=== PATIENT | male | born 1980 | race Caucasian/White ===

== ENCOUNTER 2018-10-18 08:39 | Emergency (ER) | payer BC ==
--- NOTE | 2018-10-18 09:09 | EDM.PDOC ---
ED HPI GENERAL MEDICAL PROBLEM - General Chief Complaint: Lower Extremity Injury/Pain Stated Complaint: RT LEG TENDER AND SWOLLEN Time Seen by Provider: 10/18/18 08:57 Source of Information: Reports: Patient, RN Notes Reviewed History Limitations: Reports: No Limitations - History of Present Illness INITIAL COMMENTS - FREE TEXT/NARRATIVE: The patient states that he developed posterior right calf pain on or about this past 10/14/2018. He does not recall any injury to the leg, and while it feels like a cramp, he does not recall actually having a cramp in the leg. He has not noticed any swelling or other abnormal appearance to his right leg. No tingling or numbness to the right lower extremity. He denies undertaking any new exercise. He [address] to and from work, daily, but he has not taken any prolonged trips or flights. He does not have a known history of hypercoagulation, and there is no history of a DVT or PE. No recent chest pain, palpitations, or dyspnea. No prior similar symptoms. The patient states that he has tried Icy Hot, a heating pad, and a TENS unit, without relief. The patient was seen at the walk-in clinic today, but sent here for evaluation. The patient's PCP is Dr. Blake. Right Posterior Leg Pain Score (Numeric/FACES): 3 - Related Data Allergies Allergy/AdvReac Type Severity Reaction Status Date / Time ibuprofen Allergy Nausea Verified 10/18/18 08:51 Home Meds: Home Meds . 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 ED EXAM, GENERAL - Physical Exam Exam: See Below Exam Limited By: No Limitations General Appearance: Alert, WD/WN, No Apparent Distress Extremities: Normal Inspection, Normal Range of Motion, No Pedal Edema, Normal Capillary Refill, Other (No visible abnormality to the right leg, when compared to the left, such as swelling, erythema, ecchymosis, or abrasion. Mid-calf circumference of the right leg is 39.0 cm, while the mid-calf circumference of the left leg is 38.5 cm. Mild tenderness to palpation of the posterior right calf. Neurovascular status of the right lower extremity is intact.) Course - Vital Signs Last Recorded V/S: Last Vital Signs Temp 36.5 C 10/18/18 08:48 Pulse 81 10/18/18 08:48 Resp 16 10/18/18 08:48 BP 140/98 H 10/18/18 08:48 Pulse Ox 95 10/18/18 08:48 - Orders/Labs/Meds Labs: Laboratory Tests 10/18/18 10/18/18 10/18/18 Range/Units 09:18 09:18 09:18 WBC 7.09 (4.23-9.07) K/mm3 RBC 5.34 (4.63-6.08) M/mm3 Hgb 15.2 (13.7-17.5) gm/L Hct 46.2 (40.1-51.0) % MCV 86.5 (79.0-92.2) fl MCH 28.5 (25.7-32.2) pg MCHC 32.9 (32.2-35.5) g/dl RDW Std Deviation 43.3 (35.1-43.9) fL Plt Count 226 (163-337) K/mm3 MPV 9.4 (9.4-12.3) fl Neutrophils % (Manual) 43 (40-60) % Band Neutrophils % 0 (0-10) % Lymphocytes % (Manual) 44 H (20-40) % Atypical Lymphs % 0 % Monocytes % (Manual) 11 H (2-10) % Eosinophils % (Manual) 1 (0.8-7.0) % Basophils % (Manual) 1 (0.2-1.2) Platelet Estimate Adequate Plt Morphology Comment Normal RBC Morph Comment Normal PT 10.3 (9.5-12.1) SECONDS INR 0.94 APTT 30 (24-31) SECONDS Sodium 139 (136-145) mEq/L Potassium 4.2 (3.5-5.1) mEq/L Chloride 104 (98-107) mEq/L Carbon Dioxide 26 (21-32) mEq/L Anion Gap 13.2 (5-15) BUN 17 (7-18) mg/dL Creatinine 1.0 (0.7-1.3) mg/dL Est Cr Clr Drug Dosing 120.88 mL/min Estimated GFR (MDRD) > 60 (>60) mL/min BUN/Creatinine Ratio 17.0 (14-18) Glucose 132 H (74-106) mg/dL Calcium 9.0 (8.5-10.1) mg/dL Total Bilirubin 0.4 (0.2-1.0) mg/dL AST 15 (15-37) U/L ALT 29 (16-63) U/L Alkaline Phosphatase 59 (46-116) U/L Total Protein 7.4 (6.4-8.2) g/dl Albumin 3.3 L (3.4-5.0) g/dl Globulin 4.1 gm/dL Albumin/Globulin Ratio 0.8 L (1-2) Meds: Medications Discontinued Medications Generic Name Dose Route Start Last Admin Trade Name Freq PRN Reason Stop Dose Admin Rivaroxaban 15 mg 10/18/18 11:44 Xarelto PO 10/18/18 11:45 ONETIME STA - Re-Assessments/Exams Free Text/Narrative Re-Assessment/Exam: 10/18/18 09:09 I have ordered a Doppler of the right lower extremity, to evaluate for a DVT, and, in the meantime, we will check a CBC, CMP, and coags, in case the patient does require anticoagulation. 10/18/18 11:03 The computer hardware technician believes that there is a clot below the knee, however , we will await the formal read per the Radiologist. 10/18/18 11:29 Doppler ultrasound of the right lower extremity is read by Dr. Drummond as: 1. Occluded right peroneal vein, uncertain if clot is acute or old as described above. 2. Probable small amount of acute clot within the right mid superficial femoral vein. Based on the above findings, I will start the patient on Xarelto. 10/18/18 11:52 Test results discussed with the patient and his . My rationale for starting the patient on Xarelto was explained. The patient has been given a coupon for 30 days of Xarelto for free, and I will write a prescription for a 30-day supply. The patient states that he has oral surgery scheduled for October 26. The patient will need to follow-up with his PCP, Dr. Blake, to determine if Xarelto is the correct long-term anticoagulant for him, and at that time, they can also determine what to do about his dental surgery. Departure - Departure Time of Disposition: 11:54 Disposition: Home, Self-Care 01 Condition: Good Clinical Impression: Deep vein thrombosis (DVT) of right lower extremity - Discharge Information *PRESCRIPTION DRUG MONITORING PROGRAM REVIEWED*: Not Applicable *COPY OF PRESCRIPTION DRUG MONITORING REPORT IN PATIENT SHAARN: Not Applicable Referrals: Luca Blake MD [Primary Care Provider] - Forms: ED Department Discharge Additional Instructions: You were seen in the emergency room for right calf pain. Workup in the ER included blood work and a Doppler ultrasound of your right lower extremity. Your blood work was unremarkable. The Doppler ultrasound found a clot in a deep vein in your calf, and another clot in a deep vein in your thigh. You have been started on the anticoagulant (blood thinner) Xarelto. A prescription for a 30-day supply of Xarelto, along with a coupon for 30 days of Xarelto for free, have been provided to you. Begin taking Xarelto every 12 hours , as prescribed, starting around midnight tonight, although over the long-term, you may want to find a more convenient schedule. Follow-up with your PCP, Dr. Luca Blake, as early as tomorrow, 10/19/2018, to determine if Xarelto is the right long-term anticoagulant for you. At that visit, you should also discuss what to do about your upcoming oral surgery. As discussed, while anticoagulants do not cause you to bleed, if you bleed for some other reason, such as with an injury, the bleeding can be severe. You therefore need to be careful to not injure yourself. If any other problems, please do not hesitate to return to the ER.
--- NOTE | 2018-10-18 11:23 | US ---
Right lower extremity deep venous ultrasound: Duplex and color flow imaging was obtained of the right common femoral, proximal greater saphenous, superficial femoral, popliteal, posterior tibial and peroneal veins. Left common femoral vein is also evaluated. Findings: Peroneal vein shows no compression. Intraluminal material is seen within the peroneal vein which appears slightly echogenic. Findings are felt compatible with venous thrombosis but uncertain as to age of the thrombosis given the areas of increased echoes. Incomplete compression within the mid superficial femoral vein is noted which is suspicious for small area of acute thrombus. Other veins show normal phasic flow, augmentation and compression. Incidental inguinal lymph nodes are seen. Impression: 1. Occluded right peroneal vein, uncertain if clot is acute or old as described above. 2. Probable small amount of acute clot within the right mid superficial femoral vein. Diagnostic code #5
[2018-10-18] MEDS ORDERED: Rivaroxaban 10 MG Tab PO STA (11:44)
[2018-10-18 12:10] VITALS: BP 134/74
== END 2018-10-18 12:04 | disposition home or self-care (01) ==
LOC: JD.ED 08:39
DX: I82.4Z1 Acute embolism and thrombosis of unspecified deep veins of right distal lower extremity (principal); F17.210 Nicotine dependence, cigarettes, uncomplicated; Z88.6 Allergy status to analgesic agent
CPT/HCPCS: 36415; 80053; 85007; 85027; 85610; 85730; 93971; 99284; A9270; 99283

== ENCOUNTER 2020-06-03 11:59 | Emergency (ER) | payer BC ==
[2020-06-03 12:15] VITALS: PULSE 88
--- NOTE | 2020-06-03 13:06 | EDM.PDOCBH ---
ED HPI GENERAL MEDICAL PROBLEM - General Chief Complaint: Behavioral/Psych Stated Complaint: PSYCH EVAL Time Seen by Provider: 06/03/20 12:34 Source of Information: Reports: Patient History Limitations: Reports: No Limitations - History of Present Illness INITIAL COMMENTS - FREE TEXT/NARRATIVE: 40-year-old male presents to the ED requesting help with major depressive illness. Patient states that he has been suffering depressive symptoms for the better part of 2 years. He finds that he is now completely isolated himself from his family. He comes home and eats supper and then stays on his phone playing various games and ignoring his children and his . He has complete loss of libido for several months. Appetite remains fair with no weight loss or gain. Markedly disrupted sleep pattern. Sometimes takes hours to fall asleep. Often iv technician awakening. Does feel anxious once in a while. No history of traumatic brain injury. He has no medical problems and takes no medications. Most recently his suicidal ideation symptoms have worsened and are present on a nearly daily basis. 3 days ago he took a gun out to his vehicle with plans to shoot himself but his intervened and now all the guns have been taken away from the home. His has left with his child due to the way he has been feeling and have encouraged him to seek psychiatric help. He therefore presents for voluntary admission to the hospital for psychiatric evaluation and is open to starting medications. He has no substance abuse issues other than nicotine addiction smoking 20 cigarettes daily. He does not drink alcohol and he does not use any street drugs and has no history of intravenous drug abuse. 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 He denies any auditory or visual hallucinations. At no time in his life has he felt high or like he is on top of the world and does not need food or sleep etc. frequent mood swings with no physical altercations ever with his . States he does feel sad at times and tearful. He tends to hide his feelings from his . Onset: Gradual (Depressive symptomatology for the better part of 2 years.) Duration: Chronic, Getting Worse Location: Reports: Generalized (And loneliness.) Quality: Reports: Other (Recurrent suicidal ideation) Severity: Moderate Improves with: Reports: None Worsens with: Reports: None Context: Denies: Activity, Exercise, Lifting, Sick Contact, Trauma, Other Associated Symptoms: Reports: Cough (Occasional smoker's cough.), cough w sputum, Malaise. Denies: No Other Symptoms, Confusion, Chest Pain, Diaphoresis, Fever/Chills, Headaches, Loss of Appetite, Nausea/Vomiting, Rash, Seizure, Shortness of Breath, Syncope, Weakness Treatments MALTSTER: Reports: Other (see below) (None.) - Related Data Allergies Allergy/AdvReac Type Severity Reaction Status Date / Time ibuprofen Allergy Severe Nausea Verified 06/03/20 12:15 Home Meds: Home Meds . [No Known Home Meds] 10/18/18 [History] Past Medical History - Past Health History Medical/Surgical History: Denies Medical/Surgical History Psychiatric History: Reports: ADD (Took Ritalin all through high school and quit about grade 10 and was able to cope with his disability and graduate from school.), Suicide Attempt, Suicidal Ideation - Infectious Disease History Infectious Disease History: Reports: Chicken Pox - Past Surgical History Male Surgical History: Reports: Vasectomy Social & Family History - Family History Family Medical History: Noncontributory Oncologic: Reports: Liver, Lung - Tobacco Use Smoking Status *Q: Current Every Day Smoker Tobacco Use Within Last Twelve Months: Cigarettes Years of Tobacco use: 20 Packs/Tins Daily: 1 - Caffeine Use Caffeine Use: Reports: Energy Drinks, Soda - Alcohol Use Alcohol Use History: No - Recreational Drug Use Recreational Drug Use: No - Living Situation & Occupation Living situation: Reports: , with Spouse, with Family (2 kids) 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 Denies: Fever, Chills, Malaise, Weakness, Decreased Appetite, Weight Loss HEENT: Reports: No Symptoms Respiratory: Reports: Cough, Sputum Cardiovascular: Reports: No Symptoms. Denies: Chest Pain, Blood Pressure Problem, Claudication, Lightheadedness, Orthopnea Endocrine: Reports: Fatigue GI/Abdominal: Reports: No Symptoms : Reports: No Symptoms Musculoskeletal: Reports: Back Pain (Patient problems with low back pain.) Skin: Reports: No Symptoms Neurological: Reports: No Symptoms Psychiatric: Reports: Depression, Mood Lability, Suicidal Ideation, Other (Interim fragment and problems with us insomnia). Denies: Anxiety, Confusion, Cravings, Hallucinations, Homicidal Ideation Hematologic/Lymphatic: Reports: No Symptoms Immunologic: Reports: No Symptoms ED EXAM, BEHAVIORAL HEALTH - Physical Exam Exam: See Below Exam Limited By: No Limitations General Appearance: Alert, WD/WN, No Apparent Distress, Other (Patient is very cooperative alert and pleasant. Temperature is 36.7 with a heart rate of 88 respiratory of 19 pulse ox is 96% on room air BP is elevated at 161 /102. This will be rechecked once he settles in and is not quite so anxious.) Eye Exam: Bilateral Eye: Normal Inspection (No blepharal pallor or scleral icterus.) Nose: Nasal Flaring Throat/Mouth: Normal Lips, Normal Teeth, Normal Oropharynx Head: Atraumatic, Normocephalic Neck: Normal Inspection, Supple, Non-Tender, Full Range of Motion. No: Carotid Bruit, Limited Range of Motion, Lymphadenopathy (L), Lymphadenopathy (R), Thyromegaly Respiratory/Chest: No Respiratory Distress, Lungs Clear, Normal Breath Sounds, No Accessory Muscle Use, Chest Non-Tender Cardiovascular: Normal Peripheral Pulses, Regular Rate, Rhythm, No Edema, No Gallop, No Murmur, No Rub GI/Abdominal: Normal Bowel Sounds, Soft, Non-Tender, No Organomegaly, No Distention, No Abnormal Bruit, No Mass, Pelvis Stable, Other (Male) Exam: No Hernia (No surgical scars) Back Exam: Normal Inspection, Full Range of Motion. No: CVA Tenderness (L), CVA Tenderness (R) Extremities: Normal Inspection, Normal Range of Motion, Non-Tender, No Pedal Edema, Normal Capillary Refill Neurological: Alert, Normal Mood/Affect, CN II-XII Intact, Normal Cognition, Normal Gait, Normal Reflexes, No Motor/Sensory Deficits, Oriented x 3 Psychiatric: Alert, Normal Affect, Normal Cognition, Normal Mood, Oriented, Suicidal Plan, Suicidal Thoughts. No: Disoriented, Inattentive, Non- Communicative, Poor Eye Contact, Uncooperative, Withdrawn, Flight of Ideas, Homicidal Thoughts, Phobic, Mormonism Delusions, Tangential Thoughts, Auditory Hallucinations, Visual Hallucinations, Grandiose Thoughts, Pressured Speech, Paranoid Thoughts, Threatening Behavior Skin Exam: Warm, Dry, Intact, Normal color, No rash COURSE, BEHAVIORAL HEALTH COMP - Course Vital Signs: Last Vital Signs Temp 36.7 C 06/03/20 12:12 Pulse 88 06/03/20 12:12 Resp 19 06/03/20 12:12 BP 144/95 H 06/03/20 13:51 Pulse Ox 96 06/03/20 12:12 Orders, Labs, Meds: Laboratory Tests 06/03/20 06/03/20 06/03/20 Range/Units 13:15 13:15 13:15 WBC 8.04 (4.23-9.07) K/mm3 RBC 5.38 (4.63-6.08) M/mm3 Hgb 15.5 (13.7-17.5) gm/dl Hct 46.2 (40.1-51.0) % MCV 85.9 (79.0-92.2) fl MCH 28.8 (25.7-32.2) pg MCHC 33.5 (32.2-35.5) g/dl RDW Std Deviation 41.9 (35.1-43.9) fL Plt Count 260 (163-337) K/mm3 MPV 9.3 L (9.4-12.3) fl Neut % (Auto) 60.8 (34.0-67.9) % Lymph % (Auto) 29.1 (21.8-53.1) % Dunn % (Auto) 8.0 (5.3-12.2) % Eos % (Auto) 1.2 (0.8-7.0) Baso % (Auto) 0.4 (0.1-1.2) % Neut # (Auto) 4.89 (1.78-5.38) K/mm3 Lymph # (Auto) 2.34 (1.32-3.57) K/mm3 Dunn # (Auto) 0.64 (0.30-0.82) K/mm3 Eos # (Auto) 0.10 (0.04-0.54) K/mm3 Baso # (Auto) 0.03 (0.01-0.08) K/mm3 Sodium 137 (136-145) mEq/L Potassium 3.9 (3.5-5.1) mEq/L Chloride 101 (98-107) mEq/L Carbon Dioxide 26 (21-32) mEq/L Anion Gap 13.9 (5-15) BUN 13 (7-18) mg/dL Creatinine 1.1 (0.7-1.3) mg/dL Est Cr Clr Drug Dosing 107.76 mL/min Estimated GFR (MDRD) > 60 (>60) mL/min BUN/Creatinine Ratio 11.8 L (14-18) Glucose 217 H (74-106) mg/dL Hemoglobin A1c (4.50-6.20) % Calcium 8.5 (8.5-10.1) mg/dL Total Bilirubin 0.3 (0.2-1.0) mg/dL AST 16 (15-37) U/L ALT 36 (16-63) U/L Alkaline Phosphatase 61 (46-116) U/L Total Protein 7.6 (6.4-8.2) g/dl Albumin 3.6 (3.4-5.0) g/dl Globulin 4.0 gm/dL Albumin/Globulin Ratio 0.9 L (1-2) TSH 3rd Generation 1.748 (0.358-3.74) uIU/mL Salicylates 4.4 (2.8-20) mg/dL Urine Opiates Screen (UEOHQY=916) Ur Buprenorphine Scrn (CUTOFF=10) Ur Oxycodone Screen (JMP5VW=420) Urine Methadone Screen (DVJ2VM=412) Ur Propoxyphene Screen (ETXKUL=537) Acetaminophen 0 L (10-30) ug/mL Ur Barbiturates Screen (NXNKMH=763) Ur Tricyclics Screen (FLOSLT=161) Ur Phencyclidine Scrn (CUTOFF=25) Ur Amphetamine Screen (RMILQH=457) U Methamphetamines Scrn (HACTDV=514) U Benzodiazepines Scrn (PTOKWY=560) U Cocaine Metab Screen (RDYIOG=691) U Marijuana (THC) Screen (CUTOFF=50) Ethyl Alcohol 0.00 (0.00) gm% SARS-CoV-2 RNA (SHERRILL) (NEGATIVE) 06/03/20 06/03/20 06/03/20 Range/Units 13:15 13:17 13:18 WBC (4.23-9.07) K/mm3 RBC (4.63-6.08) M/mm3 Hgb (13.7-17.5) gm/dl Hct (40.1-51.0) % MCV (79.0-92.2) fl MCH (25.7-32.2) pg MCHC (32.2-35.5) g/dl RDW Std Deviation (35.1-43.9) fL Plt Count (163-337) K/mm3 MPV (9.4-12.3) fl Neut % (Auto) (34.0-67.9) % Lymph % (Auto) (21.8-53.1) % Dunn % (Auto) (5.3-12.2) % Eos % (Auto) (0.8-7.0) Baso % (Auto) (0.1-1.2) % Neut # (Auto) (1.78-5.38) K/mm3 Lymph # (Auto) (1.32-3.57) K/mm3 Dunn # (Auto) (0.30-0.82) K/mm3 Eos # (Auto) (0.04-0.54) K/mm3 Baso # (Auto) (0.01-0.08) K/mm3 Sodium (136-145) mEq/L Potassium (3.5-5.1) mEq/L Chloride (98-107) mEq/L Carbon Dioxide (21-32) mEq/L Anion Gap (5-15) BUN (7-18) mg/dL Creatinine (0.7-1.3) mg/dL Est Cr Clr Drug Dosing mL/min Estimated GFR (MDRD) (>60) mL/min BUN/Creatinine Ratio (14-18) Glucose (74-106) mg/dL Hemoglobin A1c 8.60 H (4.50-6.20) % Calcium (8.5-10.1) mg/dL Total Bilirubin (0.2-1.0) mg/dL AST (15-37) U/L ALT (16-63) U/L Alkaline Phosphatase (46-116) U/L Total Protein (6.4-8.2) g/dl Albumin (3.4-5.0) g/dl Globulin gm/dL Albumin/Globulin Ratio (1-2) TSH 3rd Generation (0.358-3.74) uIU/mL Salicylates (2.8-20) mg/dL Urine Opiates Screen Negative (IVKDTV=993) Ur Buprenorphine Scrn Negative (CUTOFF=10) Ur Oxycodone Screen Negative (ZHV9QI=019) Urine Methadone Screen Negative (TTB1ID=197) Ur Propoxyphene Screen Negative (AKCDWT=854) Acetaminophen (10-30) ug/mL Ur Barbiturates Screen Negative (CMKDDR=498) Ur Tricyclics Screen Negative (CVMEAL=537) Ur Phencyclidine Scrn Negative (CUTOFF=25) Ur Amphetamine Screen Negative (XKWQHW=536) U Methamphetamines Scrn Negative (ZKLJEI=078) U Benzodiazepines Scrn Negative (AKXHTT=880) U Cocaine Metab Screen Negative (XHTCPC=344) U Marijuana (THC) Screen Negative (CUTOFF=50) Ethyl Alcohol (0.00) gm% SARS-CoV-2 RNA (SHERRILL) Negative (NEGATIVE) Re-Assessment/Re-Exam: 40-year-old male attends the ED today requesting help with major depressive symptoms that have probably been going on for 2 years. Suicidal ideation has been much more prevalent in the last couple of weeks. He states he took a gun out to his vehicle on the evening of May 31 and was going to end his life when his intervened. Subsequently the has left the home with their child and is taken all the guns away from the home as well. Patient therefore attends the ED voluntarily seeking help for major depressive illness. A major component of his problems is disrupted sleep pattern for several years. There is a bed for him at [facility] in [place]. Therefore he will have routine labs collected including thyroid function and ECG and a COVID-19 screen. At present his is here to provide transport to that facility and they are getting along very well. His has a fairly good understanding of depression as she was on antidepressant medications for many years and has been off for the last couple of years. Re-Assessment/Re-Exam Date: 06/03/20 (Labs reveal a normal white count at 8.04. Differential shows 60.8% neutrophils on the auto differential. Hemoglobin is 15.5 with hematocrit of 46.2. MCV is normal at 85.9. Platelet count is normal at 260,000. Sodium 137 with potassium 3.9. Chloride 101 with a bicarb of 26. Anion gap is 13.9. BUN is 13 with a creatinine of 1.1. GFR is greater than 60. Glucose is elevated at 217 raising some concerns of possible occult type 2 diabetes. I will have a glycosylated protein ordered. Calcium is 8.5 liver function is normal. Total protein is 7.6 with an albumin fraction of 3.6. TSH is normal at 1.748. Serum salicylates are normal at 4.4. Acetaminophen is 0 blood alcohol is 0.00 and the urine drug screen was negative. COVID-19 test is also negative.) Re-Assessment/Re-Exam Time: 16:43 (Close elevated protein level did come back elevated at 8.60 indicating the patient does have type 2 diabetes which she does not know that he has. This information was forwarded to the 1 call nurse at [facility].) Departure - Departure Time of Disposition: 16:44 Disposition: DC/Tfer to Psych Hosp/Unit 65 Condition: Fair Clinical Impression: Depressive disorder, Depression with suicidal ideation, Type 2 diabetes mellitu s - Discharge Information *PRESCRIPTION DRUG MONITORING PROGRAM REVIEWED*: Not Applicable *COPY OF PRESCRIPTION DRUG MONITORING REPORT IN PATIENT SHARAN: Not Applicable Referrals: Luca Blake MD [Primary Care Provider] - Forms: ED Department Discharge Sepsis Event Note (ED) - Evaluation Sepsis Screening Result: No Definite Risk - Focused Exam Vital Signs: Vital Signs Temp Pulse Resp BP Pulse Ox 06/03/20 13:51 144/95 H 06/03/20 12:12 36.7 C 88 19 161/102 H 96
[2020-06-03 13:52] VITALS: BP 144/95
[2020-06-03 14:12] LABS: ACETAMINOPHEN 0 ug/mL (10-30)
[2020-06-03 15:46] LABS: HEMOGLOBIN A1C 8.6 % (4.50-6.20)
== END 2020-06-03 14:45 ==
LOC: JD.ED 11:59
DX: F32.9 Major depressive disorder, single episode, unspecified (principal); E11.9 Type 2 diabetes mellitus without complications; F17.210 Nicotine dependence, cigarettes, uncomplicated; Z88.6 Allergy status to analgesic agent; Z20.828 Contact with and (suspected) exposure to other viral communicable diseases
CPT/HCPCS: 36415; 80053; 80306; 80307; 83036; 84443; 85025; 93005; 93010; 99285; 99285-25; U0002

== ENCOUNTER 2020-10-14 18:59 | Emergency (ER) | payer BC ==
[2020-10-14 19:27] VITALS: BP 157/98; PULSE 90
--- NOTE | 2020-10-14 20:25 | EDM.PDOCBH ---
ED HPI GENERAL MEDICAL PROBLEM - General Chief Complaint: Behavioral/Psych Stated Complaint: JERICA THOMPSON Time Seen by Provider: 10/14/20 19:48 Source of Information: Reports: Patient, Family () History Limitations: Reports: No Limitations - History of Present Illness INITIAL COMMENTS - FREE TEXT/NARRATIVE: Mr. Casiano is a pleasant 40-year-old gentleman who, medical records indicate, was seen in this ED on 06/03/2020 with a complaint of 2 years of depression, suicidal ideation, and a near-attempt by intendint to shoot himself with a shotgun, but that his had talked him out of it. He was subsequently admitted to the psychiatric unit at [facility], where, he tells me today, and he stayed for 5 days, during which time he was started on bupropion. Since that time, he states that he has had 3 or 4 telemedicine visits with a Psychiatrist, the most recent one around 2019, and that a number of changes to his medications have been made, with his current regimen including fluoxetine prescribed by his PCP around 2019, and bupropion prescribed by his counselor. He now presents to the ED stating that he has been feeling "edgy", anxious, and feeling like he could "flip out" at any moment, for the past week. He states that he broke a picture frame over his knee this past 10/08/2020, getting glass everywhere. He states that he meets with his counselor once a week, but that it does not seem to be helping. His is concerned that he may have an outburst at any time, therefore told him that he either needed to come to the ED, or she was going to call the police or his boss. The patient states that since being started on psychiatric medications, he occasionally feels depressed, although denies feeling depressed at this time, and he states that he has not been feeling suicidal. Of note, the patient's blood glucose was 217 on 06/03/2020, with a Hgb A1c of 8.60%, confirming a diagnosis of diabetes. Dr. Joe documented that he relayed this information to the [facility] nurse, but the patient tells me at this time that he was unaware of it, and that he has not been prescribed any diabetes medications. Here in the ED, the patient's initial BP is mildly elevated at 157/98, otherwise, he is hemodynamically stable, afebrile, saturating 95% on room air. Other than his altered mood, he reports having some nausea and vomiting this past 10/10/2020, and a decreased appetite. He reports having no trouble sleeping, however. He denies having a recent fever, chills, sore throat, ear pain, nasal or sinus congestion, cough, dyspnea, chest pain, palpitations, constipation, diarrhea, abdominal pain, urinary symptoms, recent weight gain or weight loss, recent bloody bowel movements or black bowel movements, recent joint aches, headaches, or rashes. The patient's PCP is Dr. Luca Blake. - Related Data Allergies Allergy/AdvReac Type Severity Reaction Status Date / Time ibuprofen Allergy Severe Nausea Verified 06/03/20 12:15 Home Meds: Home Meds FLUoxetine HCl [Prozac] 20 mg PO DAILY 10/14/20 [History] Topiramate 1 tab PO Q12H #60 tablet 10/14/20 [Rx] buPROPion [Wellbutrin] 50 mg PO DAILY 10/14/20 [History] Past Medical History Psychiatric History: Reports: ADD (as a child, untreated since 17 yrs old), Depression, Suicidal Ideation (06/03/2020) Endocrine/Metabolic History: Reports: Diabetes, Type II (untreated), Obesity/BMI 30+ - Infectious Disease History Infectious Disease History: Reports: Chicken Pox - Past Surgical History Male Surgical History: Reports: Vasectomy Social & Family History - Tobacco Use Tobacco Use Status *Q: Current Every Day Tobacco User Years of Tobacco use: 26 Packs/Tins Daily: 1.5 Tobacco Use Comment: Since 14 yrs old - Caffeine Use Caffeine Use: Reports: Soda - Alcohol Use Alcohol Use History: Yes Alcohol Use Frequency: Rarely - Recreational Drug Use Recreational Drug Use: Yes Drug Use in Last 12 Months: No Recreational Drug Type: Reports: Marijuana/Hashish (last smoked in 2001) - Living Situation & Occupation Living situation: Reports: , with Spouse, with Family (2 kids) 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 ED EXAM, BEHAVIORAL HEALTH - Physical Exam Exam: See Below Exam Limited By: No Limitations General Appearance: Alert, WD/WN, No Apparent Distress Eye Exam: Bilateral Eye: EOMI, Normal Inspection Ears: Normal External Exam, Hearing Grossly Normal Nose: Normal Inspection Throat/Mouth: Normal Inspection, Normal Lips, Normal Voice, No Airway Compromise Head: Atraumatic, Normocephalic Neck: Normal Inspection, Full Range of Motion Respiratory/Chest: No Respiratory Distress, Lungs Clear, Normal Breath Sounds, No Accessory Muscle Use Cardiovascular: Normal Peripheral Pulses, Regular Rate, Rhythm, No Edema, No Gallop, No JVD, No Murmur, No Rub GI/Abdominal: Normal Bowel Sounds, Soft, Non-Tender, No Organomegaly, No Distention, No Abnormal Bruit, No Mass Back Exam: Normal Inspection, Full Range of Motion, NT Extremities: Normal Inspection, Normal Range of Motion, No Pedal Edema, Normal Capillary Refill Neurological: Alert, Normal Cognition, No Motor/Sensory Deficits, Oriented x 3 Psychiatric: Normal Affect Skin Exam: Warm, Dry, Intact, Normal color, No rash COURSE, BEHAVIORAL HEALTH COMP - Course Vital Signs: Last Vital Signs Temp 36.0 C L 10/14/20 19:24 Pulse 90 10/14/20 19:24 Resp 20 10/14/20 19:24 BP 157/98 H 10/14/20 19:24 Pulse Ox 95 10/14/20 19:24 Orders, Labs, Meds: Laboratory Tests 10/14/20 Range/Units 20:52 POC Glucose 173 H (70-105) mg/dL Medications Discontinued Medications Generic Name Dose Route Start Last Admin Trade Name Derian PRN Reason Stop Dose Admin Topiramate 25 mg 10/14/20 22:03 10/14/20 22:22 Topamax PO 10/14/20 22:04 25 mg ONETIME STA Administration Topiramate 25 mg 10/14/20 23:39 10/14/20 23:45 Topamax PO 10/14/20 23:40 25 mg ONETIME STA Administration Medical Clearance: 10/14/20 20:21 As above, the patient was seen in this ED on 06/03/2020 for depression and suicide intention, was hospitalized at [facility] for 5 days, during which time he was started on bupropion. Since then, he has had numerous changes to his medications, and is currently on fluoxetine, which he has been on since around 2019, and bupropion. He states that for the last week he has been feeling anxious, edgy, and angry, and states that he had an anger outburst this past Friday, breaking a picture frame over his knee. He acknowledges that he occasionally feels depressed, but he denies feeling suicidal, therefore I do not believe he meets criterion for emergency psychiatric admission. I do feel, however, that he would be well served in speaking with a Psychiatrist, therefore we are going to see if we can arrange for a telemedicine evaluation tonight with Dr. Gupta. If that is not possible, I will try to speak to a Psychiatrist, recognizing the limitations that they would have in being able to recommend treatment over the phone without being able to evaluate the patient in person. Since the patient was found to have diabetes in May, and the patient states that he was unaware of it and that nothing has been done about it since, I have ordered an Accu-Chek. 10/14/20 21:50 The patient's Accu-Chek returned elevated at 173. 10/14/20 23:35 Late entry; I had to attend to a medical emergency. Case discussed with Dr. Gupta at 21:53. He did not feel that a [id number] telemedicine interview was necessary tonight. He agreed that the patient does not likely meet criterion for emergency psychiatric admission, but would benefit from some modification of his medications. He recommended that we start the patient on topiramate (Topamax) 25 mg twice daily, which should help with mood stabilization, as well as reduce anxiety. He would then like to have the patient follow-up with him by telemedicine, and provided both a phone number and website for the patient to contact. The above was discussed with the patient and his . They are agreeable with this plan. The patient will be given his first dose of Topamax here in the ED, and I will submit a prescription that the patient can cook pickled meat tomorrow. We will also try to give the patient a single dose that he can take home to take in the morning, since tomorrow is Friday, and the pharmacy will not be open until noon. Departure - Departure Time of Disposition: 23:37 Disposition: Home, Self-Care 01 Condition: Good Clinical Impression: Mood disorder, Hyperglycemia due to type 2 diabetes mellitus - Discharge Information *PRESCRIPTION DRUG MONITORING PROGRAM REVIEWED*: Not Applicable *COPY OF PRESCRIPTION DRUG MONITORING REPORT IN PATIENT SHARAN: Not Applicable Prescriptions: Topiramate 1 tab PO Q12H #60 tablet Referrals: Luca Blake MD [Primary Care Provider] - Mejia Gupta MD [Physician] - Forms: ED Department Discharge Additional Instructions: You were seen in the emergency room for 1 week of feeling edgy, anxious, and angry, with concerns about additional angry outbursts. Work-up in the ER included an Accu-Chek, which found your blood sugar to be elevated at 173. Your blood sugar on 06/03/2020 was also elevated, at 217. This indicates that you have diabetes. Your case was discussed with the Psychiatrist Dr. Mejia Gupta, who recommended that we start you on topiramate (Topamax), which can help stabilize your mood and decrease anxiety. You have been given your first dose of topiramate in the ER, plus an additional pill to take in the morning. A prescription for topiramate has been sent to the [facility] pharmacy, located just south and [place] [address] from [facility]. Take 1 tablet of topiramate every 12 hours, as prescribed. You are to continue taking your current fluoxetine (Prozac) and bupropion (Wellbutrin) as currently prescribed. Dr. Gupta would like you to arrange for a telemedicine meeting by either calling [phone] going to his website at [email or web address]. We recommend that you follow-up with your PCP, Dr. Luca Blake, to address your diabetes. If any other problems, please do not hesitate to return to the ER. Sepsis Event Note (ED) - Evaluation Sepsis Screening Result: No Definite Risk - Focused Exam Vital Signs: Vital Signs Temp Pulse Resp BP Pulse Ox 10/14/20 19:24 36.0 C L 90 20 157/98 H 95
[2020-10-14] MEDS ORDERED: Topiramate 25 MG Tab PO STA ×2 (22:03→23:39)
== END 2020-10-14 23:50 | disposition home or self-care (01) ==
LOC: JD.ED 18:59
DX: E11.65 Type 2 diabetes mellitus with hyperglycemia (principal); F39 Unspecified mood [affective] disorder; E11.9 Type 2 diabetes mellitus without complications; E66.9 Obesity, unspecified; Z72.0 Tobacco use; Z68.30 Body mass index [BMI] 30.0-30.9, adult; Z88.6 Allergy status to analgesic agent; Z79.899 Other long term (current) drug therapy
CPT/HCPCS: 82962; 99284; A9270

== ENCOUNTER 2025-06-13 08:24 | Emergency (ER) | payer BC ==
[2025-06-13 09:27] LABS: BASOPHILS ABSOLUTE AUTO 0.1 K/mm3 (0.0-0.2); BASOPHILS PERCENT AUTO 0.7 % (0.0-1.0); EOSINOPHILS ABSOLUTE AUTO 0.2 K/mm3 (0.0-0.4); EOSINOPHILS PERCENT AUTO 1.6 % (0.0-6.0); IMMATURE GRAN ABSOLUTE AUTO 0.02 K/mm3 (0.00-0.05); IMMATURE GRAN PERCENT AUTO 0.2 % (0.0-0.4); LYMPHOCYTES ABSOLUTE AUTO 3.3 K/mm3 (1.0-4.8); LYMPHOCYTES PERCENT AUTO 36.1 % (24.0-44.0); MEAN PLATELET VOLUME 9.1 fl (9.4-12.4); MONOCYTES ABSOLUTE AUTO 0.6 K/mm3 (0.0-0.8); MONOCYTES PERCENT AUTO 6.6 % (0.0-8.0); NEUTROPHILS ABSOLUTE AUTO 5.1 K/mm3 (1.8-7.7); NEUTROPHILS PERCENT AUTO 54.8 % (41.0-71.0); NRBC ABSOLUTE 0.00 (0.00-0.02); NRBC PERCENT 0.0 % (0.0-0.2); PLATELET COUNT,PLT 284 K/mm3 (150-400); RED BLOOD CELL COUNT 5.27 M/mm3 (4.52-5.90); WHITE BLOOD CELL COUNT,WBC 9.22 K/mm3 (3.9-11.3)
[2025-06-13 09:31] LABS: APPEARANCE,URINE CLEAR (Clear); GLUCOSE,URINE NEGATIVE (Negative); OCCULT BLOOD,URINE NEGATIVE (Negative)
[2025-06-13 09:37] LABS: BUPRENORPHINE SCREEN,URINE NEGATIVE (CUTOFF=10); METHADONE SCREEN, URINE NEGATIVE (CUT0FF=200); METHAMPHETAMINES SCREEN, URINE NEGATIVE (CUTOFF=500); OXYCODONE SCREEN,URINE NEGATIVE (CUT0FF=100); THC SCREEN,URINE 20 NG/ML NEGATIVE (CUTOFF=50)
[2025-06-13] MEDS: droPERidol 2.5 MG/ML SDV ONE (09:38)
[2025-06-13] MEDS: droPERidol 2.5 MG/ML SDV IV STA (09:39)
[2025-06-13 09:41] LABS: AMPHETAMINES SCREEN, URINE NEGATIVE (CUTOFF=500)
[2025-06-13 09:52] LABS: A/G RATIO 0.9 (1-2); ALANINE AMINOTRANSFERASE,ALT 23.0 U/L (16-63); ASPARTATE AMNIOTRANSFERASE,AST 12.0 U/L (15-37); BILIRUBIN TOTAL 0.4 mg/dL (0.2-1.0); BLOOD UREA NITROGEN,BUN 11.0 mg/dL (7-18); CARBON DIOXIDE,CO2 23.0 mEq/L (21-32); CHLORIDE,CL 101.0 mEq/L (98-107); CREATININE 1.0 mg/dL (0.7-1.3); EST CRCL DRUG DOSING (CG) 102.67 mL/min; ESTIMATED GFR 95.0 mL/min (>60); GLUCOSE RANDOM 178.0 mg/dL (70-99); POTASSIUM,K 3.8 mEq/L (3.5-5.1); PROTEIN TOTAL,TP 7.5 g/dl (6.4-8.2); SODIUM,NA 137.0 mEq/L (136-145)
[2025-06-13 09:54] LABS: ETHANOL BLOOD MEDICAL 0.0 gm% (0.00)
[2025-06-13] MEDS: Sodium Chloride 0.9% 10 ML Syringe FLUSH ONE (10:56)
[2025-06-13] MEDS: Iopamidol 612 MG/ML 100 ML Bottle IVPUSH ONE (10:57)
[2025-06-13 13:20] VITALS: BP 132/90; PULSE 73
== END 2025-06-13 13:20 | disposition home or self-care (01) ==
LOC: EDUNIT# → JD.ED 08:24
DX: R10.13 Epigastric pain (principal); E11.9 Type 2 diabetes mellitus without complications; Z88.6 Allergy status to analgesic agent; Z79.84 Long term (current) use of oral hypoglycemic drugs; Z79.899 Other long term (current) drug therapy
CPT/HCPCS: 36415; 74177; 80053; 80306; 80307; 81003; 83690; 83735; 85025; 96361; 96374; 99284; J1790; J7030; Q9967